=== PATIENT | female | born 1940 | race Caucasian/White ===

== ENCOUNTER 2019-08-30 20:38 | Inpatient (IN) | payer MEDICARE ==
[2019-08-30 21:35] LABS: Base Excess-Venous 7.1 mmol/L (-2.0 to 3.0); Bicarbonate (HCO3v) 33.3 mmol/L (22.0-28.0); CO2 Tension (PvCO2) 53.8 mmHg (40.0-50.0); Chloride 100 mmol/L (98-107); Potassium 3.5 mmol/L (3.5-5.1); Sodium 139 mmol/L (138-145)
[2019-08-30 21:43] LABS: #Basophils 0.1 thou/uL (0.0-0.2); #Eosinphils 0.2 thou/uL (0.0-0.7); #Lymphocytes 1.3 thou/uL (1.20-3.40); #Monocytes 0.6 thou/uL (0.11-0.59); #Neutrophils 8.6 thou/uL (1.40-6.50); %Basophils 0.5 % (0.0-1.0); %Eosinophils 1.9 % (0.0-10.0); %Lymphocytes 11.8 % (21.0-51.0); %Monocytes 5.6 % (0.0-10.0); %Neutrophils 80.2 % (42.0-75.0); Hemoglobin 12.8 g/dL (12.0-16.0); Mean Corpuscular HGB CONC 32.9 g/dL (32.0-36.0); Mean Corpuscular Hemoglobin 32.9 pg (27.0-31.0); Mean Corpuscular Volume 99.8 fL (78.0-98.0); Mean Platelet Volume 7.8 fL (7.4-10.4); Platelet Count 178 thou/uL (130-400); RBC Distribution Width 12.4 % (11.5-14.5); White Blood Cell (WBC) Count 10.8 thou/uL (4.8-10.8)
--- NOTE | 2019-08-30 21:51 | RAD ---
XR Hip Lt 2-3 View HISTORY: Fall yesterday. COMPARISON: None. FINDINGS: Positioning is very suboptimal there are findings that are suspicious for subcapital fractu re but positioning makes assessment very difficult. IMPRESSION: Probable subcapital fracture of the left femoral neck. CT would be suggested for better a ssessment.
[2019-08-30 21:52] LABS: Prothrombin Time 12.9 SEC (12.0-14.7)
[2019-08-30 21:53] LABS: PTT 31.3 SEC (22.9-36.1)
[2019-08-30 22:02] LABS: ALT (SGPT) 11 U/L (8-55); AST (SGOT) 15 U/L (5-34); Albumin 3.7 g/dL (3.4-4.8); Alkaline Phosphatase 84 U/L (40-110); Anion Gap 13 mmol/L (10-20); BUN (Urea Nitrogen) 14 mg/dL (9.8-20.1); Bilirubin, Total 0.5 mg/dL (0.2-1.2); Calc. Creatinine Clearance 0 mL/min (70-130); Calcium 9.2 mg/dL (7.8-10.44); Carbon Dioxide 32 mmol/L (23-31); Chloride 96 mmol/L (98-107); Digoxin 0.92 ng/mL (0.8-2.0); Estimated GFR-MDRD 58; Globulin 2.6 g/dL (2.4-3.5); Glucose 109 mg/dL (83-110); Potassium 3.7 mmol/L (3.5-5.1); Protein, Total 6.3 g/dL (6.0-8.3); Sodium 137 mmol/L (136-145)
--- NOTE | 2019-08-30 22:16 | CT ---
CT Brain WO Con HISTORY: Fall with head injury. COMPARISON: None. FINDINGS: The ventricular and cisternal system shows generalized atrophy. Encephalomalacia changes no [place] in the left frontal lobe. Chronic white matter changes are seen. No hemorrhage or mass effect. The mastoid air cells and visualized sinuses are clear. IMPRESSION: Left-sided frontal craniotomy and underlying encephalomalacia change. No acute findings.
--- NOTE | 2019-08-30 22:19 | CT ---
CT Cervical Spine WO Con HISTORY: Neck pain status post fall. COMPARISON: None. FINDINGS: The bones are demineralized. There is approximately 4 mm of anterolisthesis of C4 on C5. Th ere is marked disc narrowing at C5-6 and C6-7. There are prominent degenerative facet changes present. Moderate left foraminal narrowing at C3-4 with marked left foraminal narrowing at C4-5 and marked rig ht-sided foraminal narrowing at C5-6. There is also marked right-sided foraminal narrowing at C6-7. There is no CT evidence of fracture. IMPRESSION: No CT evidence of fracture the cervical spine.
--- NOTE | 2019-08-30 22:37 | RAD ---
XR Chest 1 View Portable HISTORY: Preop COMPARISON: None. FINDINGS: Heart size is slightly enlarged the patient is rotated. The lungs are clear of infiltrates. A right-sided Mediport catheter is present. The bones appear demineralized. IMPRESSION: No active intrathoracic disease.
--- NOTE | 2019-08-30 22:41 | CT ---
CT Pelvis WO Con HISTORY: Fall with hip pain COMPARISON: Plain film examination done earlier. FINDINGS: A partially visualized hypodensity involving the right kidney is most likely a cyst, it daniel sures 4.8 cm. There is a lower pole right renal calculus also seen measuring 8 to 9 mm. The bladder is mildly distended no free fluid seen within the pelvis. The bones are demineralized. Th ere is a subcapital fracture of the left femoral neck present. No additional fractures are seen. IMPRESSION: Subcapital left femoral neck fracture.
[2019-08-30] MEDS ORDERED: Nicotine 14 MG PATCH ONE (23:08)
[2019-08-30] MEDS ORDERED: Dextrose 50% Abboject 50 ML SYRINGE SLOW IVP PRN (23:16)
[2019-08-30] MEDS ORDERED: Ondansetron PF 4 MG/2 ML Vial IVP PRN (23:16)
[2019-08-30] MEDS ORDERED: Morphine 2 MG/ML SYRINGE SLOW IVP PRN (23:16)
[2019-08-30] MEDS ORDERED: Dextrose 5% in Water 1,000 ML IV PRN (23:16)
[2019-08-30] MEDS ORDERED: Ketorolac Tromethamine 30 MG/ML VIAL IVP PRN (23:24)
[2019-08-30] MEDS ORDERED: Lorazepam 0.5 MG TAB PO SCH (23:30)
[2019-08-30] MEDS ORDERED: traZODone HCl 50 MG TAB PO SCH (23:30)
[2019-08-30] MEDS ORDERED: Morphine 4 MG/ML VIAL ONE (23:55)
[2019-08-30] MEDS: traMADol HCl 50 MG TAB PO SCH (23:59)
--- NOTE | 2019-08-30 23:59 | PRG ---
DATE OF SERVICE: 08/30/2019 HISTORY OF PRESENT ILLNESS: Ms. Adams is an 79-year-old female, who came into the ER for evaluation of left hip pain after mechanical fall. The patient has been in hospice due to lung cancer with brain metastasis, COPD, emphysema, and atrial fibrillation. The patient reports she has been using a walker in the hospice facility and she tripped and fell, broke her left hip. She is unable to bear weight after that. Other than that, she did not hit her head or lose her consciousness. Upon arrival in the ED, the patient is stable, GCS 15, complains of left hip pain. PAST MEDICAL HISTORY: COPD, treated with albuterol 3 times a day. PAST SURGICAL HISTORY: noncontributory. ALLERGIES: NO KNOWN ALLERGIES. CURRENT MEDICATIONS: 1. Trazodone 100 once a day. 2. Morphine 20 mg four times a day. 3. Digoxin 125 mcg once a day. 4. Pantoprazole. 5. Albuterol. 6. Lorazepam. 7. Aspirin. PHYSICAL EXAMINATION: GENERAL: The patient is lying down in bed with no acute respiratory distress. GCS 15. Oriented x3. VITAL SIGNS: Respiratory rate 18, temperature 98, O2 saturation 97 on 2 L, heart rate 76, blood pressure 124/71. LUNGS: Clear bilaterally. HEART: Regular rate and rhythm. ABDOMEN: Soft, nondistended. EXTREMITIES: Neurovascularly intact x4. Left hip range of motion is limited due to pain. NEUROLOGY: No focal neurological deficits. ASSESSMENT: 1. Status post ground level fall. 2. Left hip fracture. 3. History of lung cancer, brain metastasis, hospice treatment. 4. Chronic obstructive pulmonary disease. PLAN: The patient will be admitted to trauma service for pain control and await for decision on treatment plan. Dr. Ward will talk to the family later and discuss on treatment plan, supportive care. The patient will be n.p.o. at midnight in case the patient to go to OR tomorrow. Resume home med [employer]. Job ID: [id number]
[2019-08-31] MEDS: Sodium Chloride 0.9% 1,000 ML IV SCH ×3 (01:15→19:12)
[2019-08-31] MEDS ORDERED: Sodium Chloride 0.9% 1,000 ML IV SCH (06:15)
[2019-08-31] MEDS: traMADol HCl 50 MG TAB PO SCH ×3 (06:16→21:12)
[2019-08-31] MEDS: Acetaminophen 1,000 MG in Premix Bag 1 BAG IVPB SCH ×3 (06:17→22:12)
[2019-08-31 06:33] LABS: #Eosinphils 0.2 thou/uL (0.0-0.7); #Lymphocytes 1.5 thou/uL (1.20-3.40); #Monocytes 0.7 thou/uL (0.11-0.59); #Neutrophils 7.2 thou/uL (1.40-6.50); %Basophils 0.3 % (0.0-1.0); %Eosinophils 2.3 % (0.0-10.0); %Lymphocytes 15.6 % (21.0-51.0); %Monocytes 7.5 % (0.0-10.0); %Neutrophils 74.2 % (42.0-75.0); Hemoglobin 11.6 g/dL (12.0-16.0); Mean Corpuscular HGB CONC 32.5 g/dL (32.0-36.0); Mean Corpuscular Hemoglobin 32.4 pg (27.0-31.0); Mean Corpuscular Volume 99.6 fL (78.0-98.0); Platelet Count 157 thou/uL (130-400); RBC Distribution Width 12.3 % (11.5-14.5); Red Blood Cell (RBC) Count 3.59 mill/uL (4.20-5.40); White Blood Cell (WBC) Count 9.7 thou/uL (4.8-10.8)
[2019-08-31] MEDS ORDERED: Albuterol Sulfate 2.5 mg/3 ml Neb NEB PRN (06:37)
[2019-08-31] MEDS ORDERED: Lorazepam 0.5 MG TAB PO PRN (06:37)
[2019-08-31 06:51] LABS: Anion Gap 12 mmol/L (10-20); BUN (Urea Nitrogen) 12 mg/dL (9.8-20.1); Calc. Creatinine Clearance 40 mL/min (70-130); Calcium 8.4 mg/dL (7.8-10.44); Carbon Dioxide 28 mmol/L (23-31); Chloride 103 mmol/L (98-107); Estimated GFR-MDRD 67; Glucose 107 mg/dL (83-110); Magnesium 1.9 mg/dL (1.6-2.6); Phosphorus 3.3 mg/dL (2.3-4.7); Potassium 3.6 mmol/L (3.5-5.1); Sodium 139 mmol/L (136-145)
[2019-08-31] MEDS ORDERED: CEFAZOLIN 2 GM in Premix Bag 1 BAG IVPB SCH (08:15)
[2019-08-31] MEDS: Famotidine/PF 20 mg/2ml Vial SLOW IVP SCH ×2 (08:34→21:13)
[2019-08-31] MEDS: traZODone HCl 50 MG TAB PO SCH (08:34)
[2019-08-31] MEDS: Polyethylene Glycol 3350 17 GM Packet PO SCH (08:35)
[2019-08-31] MEDS: Senokot S 8.6-50 MG TAB PO SCH ×2 (08:35→21:09)
[2019-08-31] MEDS ORDERED: Non-Formulary Item 1 EACH (Trazodone Hcl [Trazodone Hcl] 100 MG) PO SCH (09:00)
[2019-08-31] MEDS ORDERED: FLU VACC TS2019-20(65YR UP)/PF 180 MCG/0.5 ML SYRINGE IM ONE (09:00)
[2019-08-31] MEDS ORDERED: Digoxin 0.125 MG TAB PO SCH (09:00)
--- NOTE | 2019-08-31 09:37 | CON ---
DATE OF CONSULTATION: CHIEF COMPLAINT: Left hip pain. HISTORY OF PRESENT ILLNESS: Ms. Adams is an 79-year-old female, who fell yesterday. She lost her balance when she got up. She got somewhat lightheaded. She thinks her blood pressure dropped low. She fell on her left side. She suffered a left femoral neck fracture. The patient is on hospice for metastatic lung cancer. She does live at home, however, with her . She ambulates with a cane around her house. She uses a walker occasionally. She has pain in her hip currently. She has been admitted to the hospital for care of her hip fracture as well as medical issues. PAST MEDICAL HISTORY: COPD as well as history of lung cancer with metastatic lesions to the brain. The patient has a history of atrial fibrillation as well. She is currently only on aspirin. PAST SURGICAL HISTORY: Negative for recent surgeries. ALLERGIES: NO KNOWN DRUG ALLERGIES. SOCIAL HISTORY: The patient denies tobacco, alcohol, or drug use. IMAGES: X-rays of the left hip and pelvis demonstrated displaced femoral neck fracture. CT scan of the pelvis confirms displaced femoral neck fracture which is acute. PHYSICAL EXAMINATION: VITAL SIGNS: Temperature is 98.1, pulse is 98, respiratory rate is 18, oxygen saturations 96% on nasal cannula oxygen, blood pressure is 129/77. GENERAL: She is lying supine. She is alert. She answers questions appropriately. HEENT: Normocephalic and atraumatic. RESPIRATORY: The patient is on oxygen. Otherwise, she is breathing comfortably. EXTREMITIES: The patient's left leg is flexed and shortened. She has pain with any motion of the leg. SKIN: Intact. She is very thin. IMPRESSION: Femoral neck fracture in an elderly female with metastatic lung cancer. PLAN: At this point, we had a discussion with the patient. We will need to discuss with her and family if they would like us to proceed with surgical intervention. The goal of surgery would be allow her to have pain relief and to mobilize. Alternatively, we could treat her nonoperatively with pain control. She would likely need to go into a facility. She would need a period of nonweightbearing. We will keep her n.p.o. until her and her family decide which route they would like to take for treatment. She will have appropriate DVT prophylaxis, antibiotic prophylaxis, and pain control. Job ID: [id number]
[2019-08-31] MEDS ORDERED: EPINEPHrine 1 MG/10 ML Abboject SYRINGE ONE ×2 (12:48→16:42)
[2019-08-31] MEDS ORDERED: Calcium Chloride 1 GM/10 ML Abboject SYRINGE ONE (12:48)
[2019-08-31] MEDS ORDERED: ePHEDrine/0.9% NaCl/PF SYRINGE 50 mg/10 ml ONE (12:48)
[2019-08-31] MEDS ORDERED: PHENYLEPHRINE-NS 100 MCG/ML 10 ML SYRINGE ONE (12:48)
[2019-08-31 12:55] LABS: Bilirubin Negative (Negative); Blood, Urine Negative (Negative); Clarity Clear (Clear); Glucose, Urine (Dipstick) Normal (Negative); Leukocyte 25 Leu/uL (Negative); Nitrite Negative (Negative); Protein, Urine (Dipstick) Negative (Neg-Trace); RBC/HPF 0-3 HPF (0-3); Squamous Epithelial 0-3 HPF (0-3); Urobilinogen Normal mg/dL (Less than 2)
[2019-08-31 13:14] LABS: Bacteria/HPF None Seen HPF (None Seen)
[2019-08-31 13:15] LABS: Urine Culture Reflex Yes Yes
[2019-08-31] MEDS ORDERED: Ketamine 50 MG/ML (10ML VIAL) ONE (15:44)
[2019-08-31] MEDS ORDERED: Midazolam HCl 2 mg/2 ml Vial ONE (15:48)
[2019-08-31] MEDS ORDERED: Fentanyl 100 MCG/2 ML VIAL ONE (15:48)
[2019-08-31] MEDS ORDERED: Bupivacaine HCl 0.5%/Epinephrine 1:200,000/PF 30 ml Vial ONE (16:23)
[2019-08-31] MEDS ORDERED: EPINEPHrine 1 MG/ML AMP ONE (16:42)
[2019-08-31] MEDS ORDERED: Sodium Bicarb 50 MEQ/50 ML VIAL ONE (16:51)
[2019-08-31] MEDS ORDERED: Sodium Bicarb 50 MEQ/50 ML Abboject 8.4% SYRINGE ONE (17:00)
[2019-08-31 18:05] LABS: Actual Bicarbonate (HCO3a) 26.5 mEq/L (22-28); Base Excess (BEa) 1.5 mEq/L (-2.0 to +3.0); CO2 Tension 43.5 mmHg (35.0-45.0); Calcium, Ionized 1.26 mmol/L (1.12-1.30); Carboxyhemoglobin (COHb) 1.1 gm% (0.0-3.0); Hemoglobin (Hb) 8.7 g/dL (12.0-16.0); O2 Tension (PaO2) 118.2 mmHg (> 60.0); Potassium - ABG Lab 2.78 mmol/L (3.70-5.30)
[2019-08-31 18:09] LABS: ALV-art Gradient 540.425 (0-20); Puncture Site ALINE
[2019-08-31] MEDS ORDERED: Norepinephrine 8 MG in Dextrose 5% in Water 242 ML IVPB PRN (18:22)
[2019-08-31] MEDS ORDERED: Digoxin 0.5 MG/2 ML AMP SLOW IVP SCH (19:00)
[2019-08-31] MEDS ORDERED: Ventilator Sedation Protocol 1 EACH FS SCH (19:07)
[2019-08-31] MEDS ORDERED: Lorazepam 2 MG/ML VIAL SLOW IVP PRN (19:11)
[2019-08-31] MEDS ORDERED: Morphine 2 MG/ML SYRINGE SLOW IVP PRN (19:11)
[2019-08-31] MEDS ORDERED: Propofol 1,000 MG/100 ML VIAL IV PRN (19:11)
[2019-08-31] MEDS ORDERED: DISCONTINUE PREVIOUS NARCOTIC PAIN MEDICATIONS AND BENZODIAZEPINES FS SCH (19:11)
[2019-08-31] MEDS ORDERED: Propofol BOLUS 1,000 MG/100 ML VIAL IV PRN (19:11)
[2019-08-31] MEDS ORDERED: fentaNYL Citrate/PF 2,000 MCG in Sodium Chloride 0.9% 60 ML IV SCH (19:11)
[2019-08-31] MEDS ORDERED: Fentanyl BOLUS 250 ML IVPB PRN (19:11)
[2019-08-31] MEDS ORDERED: Arformoterol 15 MCG/2 ML NEB NEB SCH (19:15)
[2019-08-31] MEDS ORDERED: Budesonide 0.5 MG/2 ML NEB INH SCH (19:15)
--- NOTE | 2019-08-31 19:30 | RAD ---
PELVIS ONE VIEW: HISTORY: Hemiarthroplasty. COMPARISON: Hip radiograph same day. FINDINGS: Satisfactory postoperative appearance of left hip hemiarthroplasty. Expected postoperative gas and ed abhijit. IMPRESSION: Satisfactory postoperative appearance. POS: HOME
--- NOTE | 2019-08-31 19:30 | RAD ---
LEFT HIP ONE VIEW: HISTORY: Hip arthroplasty. COMPARISON: None. FINDINGS: Satisfactory postoperative appearance. POS: HOME
--- NOTE | 2019-08-31 19:32 | RAD ---
CHEST ONE VIEW: HISTORY: Intubated patient. COMPARISON: Radiograph from the prior day. FINDINGS: Port catheter tip projects over the inferior SVC. Endotracheal tube tip in good position. No pneumothorax. Lungs are mildly hyperinflated. IMPRESSION: Similar examination of the chest aside from new endotracheal tube tip at the level of the clavicles. POS: HOME
[2019-08-31 20:33] LABS: Hemoglobin 9.6 g/dL (12.0-16.0); Mean Corpuscular HGB CONC 32.1 g/dL (32.0-36.0); Mean Corpuscular Volume 99.7 fL (78.0-98.0); Mean Platelet Volume 8.2 fL (7.4-10.4); Platelet Count 161 thou/uL (130-400); RBC Distribution Width 12.3 % (11.5-14.5); White Blood Cell (WBC) Count 17.7 thou/uL (4.8-10.8)
[2019-08-31 20:48] LABS: Band 12 % (5-11); Lymphocytes 4 % (21-51); MDiff Complete? YES; Monocytes 3 % (0-10); Neutrophil 78 % (42-75); Platelet Morphology Comment Appears Adequate
[2019-08-31 20:50] LABS: ALT (SGPT) 20 U/L (8-55); AST (SGOT) 34 U/L (5-34); Albumin 2.5 g/dL (3.4-4.8); Alkaline Phosphatase 62 U/L (40-110); Anion Gap 17 mmol/L (10-20); BUN (Urea Nitrogen) 10 mg/dL (9.8-20.1); Bilirubin, Total 0.5 mg/dL (0.2-1.2); Calc. Creatinine Clearance 44 mL/min (70-130); Calcium 8.7 mg/dL (7.8-10.44); Carbon Dioxide 23 mmol/L (23-31); Chloride 107 mmol/L (98-107); Estimated GFR-MDRD 74; Globulin 2.1 g/dL (2.4-3.5); Glucose 186 mg/dL (83-110); Magnesium 1.6 mg/dL (1.6-2.6); Phosphorus 4.3 mg/dL (2.3-4.7); Protein, Total 4.6 g/dL (6.0-8.3); Sodium 143 mmol/L (136-145)
[2019-08-31 21:01] LABS: Actual Bicarbonate (HCO3a) 24.9 mEq/L (22-28); Base Excess (BEa) -0.7 mEq/L (-2.0 to +3.0); CO2 Tension 44.7 mmHg (35.0-45.0); Carboxyhemoglobin (COHb) 0.7 gm% (0.0-3.0); Hemoglobin (Hb) 10.3 g/dL (12.0-16.0); O2 Tension (PaO2) 98.1 mmHg (> 60.0); pH, Arterial 7.36 (7.35-7.45)
[2019-08-31 21:02] LABS: ALV-art Gradient 202.525 (0-20); Puncture Site LINE
[2019-08-31] MEDS ORDERED: Dextrose 50% Abboject 50 ML SYRINGE SLOW IVP PRN (21:13)
[2019-08-31] MEDS ORDERED: Dextrose 5% in Water 1,000 ML IV PRN (21:13)
[2019-08-31] MEDS ORDERED: HumaLOG 300 UNITS/3 ML VIAL SC PRN (21:13)
[2019-08-31] MEDS: methylPREDNISolone Sod Succ 40 MG VIAL IVP SCH (21:13)
--- NOTE | 2019-08-31 21:43 | PRG ---
DATE OF SERVICE: 08/31/2019 TIME OF SERVICE: Patient seen at approximately 1945 hours. SUBJECTIVE: Ms. Adams is an 79-year-old female fell causing a left hip fracture, known metastatic lung cancer and COPD, who went for ORIF for palliation today after consent by family. The surgery went well. Minimal blood loss. However, she does have a spinal anesthesia. Near the end of the case, the patient became bradycardic and hypotensive. She was pre-treated with 2 L of fluid per Anesthesia. During this episode, the patient was given a total of 2 mg of epi by push dose pressor and 3 amps of bicarb, 1 g of calcium. Blood pressure responded. She had a right femoral triple-lumen catheter as well as a right femoral art-line placed for invasive monitoring. She remained hypotensive. She was intubated for respiratory failure with a 7.5 ET tube and brought to the ICU for further resuscitation and management. I evaluated the patient in the ICU. She is currently on Levophed at 5 mcg/min. She is on SIMV, rate of 14, pressure support 10, volume 450, FiO2 0.5 with a PEEP of 5. She is getting a minute ventilation of 9 L, has a peak pressure of 15, difficult to get a sat, her MAP is in the 50s on my arrival. Heart rate is atrial fibrillation, RVR. She has been given digoxin 0.25 mg now. She has ordered 1 PRBC as she does have conjunctival pallor. The patient does have a known history of atrial fibrillation. She is not on any sedation at this time. She is awake and following command. She will open her eyes. She has some urine output, a total of 200 since coming back from the OR, however, that was nearly 2 hours ago. She has had low urine output throughout the day. Her blood gas was reviewed. Family is at the bedside. They have elected for the patient to be DNR. She was on hospice. They do not want aggressive care. They are signing for this and I will change the order in the system. The patient is on normal saline at 100 per hour. In review, she did have trace leukouria. I talked to the family. She was not ill, was not sick, had no fever, no complaints prior to she was on hospice but treated at home since she got up and landed face first when she got out of bed. She had taken sleeping pills prior to this, and she has kyphosis which has caused unsteady gait in the past. Off coumadin x 3 weeks for brain surgery. REVIEW OF SYSTEMS: Deferred secondary to patient's sedation and mechanical ventilation. PHYSICAL EXAMINATION: VITAL SIGNS: Blood pressure, MAP of 57, heart rate is 140 and variable, respiratory rate is 16, on mechanical ventilator, unable to appreciate an oxygen saturation. Her pO2 on most recent blood gas was 118 on FiO2 of 1.0, leading to a high A-a gradient. GENERAL: An 79-year-old female, on mechanical ventilator, in bed, pale, chronically ill appearing. HEENT: Normocephalic and atraumatic. Trachea is midline. No JVD is appreciated. She has 7.5 ET tube without air leak. RESPIRATORY: Mild crackles and congestion noted, but normal rate. Moves air in all lung howell. Trace expiratory wheezes. CARDIOVASCULAR: Irregularly irregular, tachycardic rhythm. No rober murmur. She has no edema. Warm extremities. ABDOMEN: Soft and nontender. PELVIS: Maaz catheter in place with scant urine. She has a right femoral art-line, right fem triple-lumen catheter. MUSCULOSKELETAL: She has ORIF of the left hip, warm extremities. Skin is pale, dry, cool. NEUROLOGIC: She is awake and following commands minimally, but does fall asleep easily, is in no acute distress. DIAGNOSTIC DATA: ABG at 1800 hours: pH of 7.40, pCO2 is 43.5, pO2 is 118, bicarb is 33.3. Chest x-ray shows ET tube above the heike. She does have a right port that is not accessed. No pneumothorax. Large lung howell. COPD pattern is appreciated. ASSESSMENT: 1. Left hip fracture, status post open reduction internal fixation. 2. Acute respiratory failure requiring mechanical ventilation. 3. Atrial fibrillation with rapid ventricular response. 4. Postprocedural hypotension. 5. General volume depletion on arrival to the hospital. 6. Chronic obstructive pulmonary disease with no acute exacerbation. 7. History of metastatic lung cancer, coronary artery disease, chronic obstructive pulmonary disease. PLAN: 1. Continue mechanical ventilator tonight. 2. Levophed to maintain mean arterial pressure greater than 65%. 3. Continue normal saline at 100 per hour. 4. We will get a rectal temp and maintain patient is cool. 5. Check CBC, CMP, mag, phosphate levels now. 6. Transfuse one PRBC now. 7. Digoxin is being given now. 8. If remains atrial fibrillation RVR after blood transfusion and digoxin, will be placed on amiodarone infusion after bolus of amiodarone. 9. Continue aggressive pulmonary toilet with DuoNeb and Brovana. 10. FiO2 to maintain SpO2 greater than 92%. 11. Given that the ABG was on FiO2 of 1.0, unable to get SpO2 now and she had a high A-a gradient with an FiO2 of 0.5%. We will repeat ABG now and follow up on the same. We must consider PE given cancer and acute onset, however most likely this is related to medication reaction in a chronically ill patient. 12. Repeat chest x-ray in the morning. 13. I have confirmed with the patient's family that her wishes are DNR. I am changing this in the system now. 14. UA did have trace amount of white, no bacteria, but given her acute respiratory failure and unknown etiology of this fall, I am going to cover her with cefazolin for the time being as urine culture has been ordered. 15. We will continue all other supportive care at this time. 16. Diet will be n.p.o. 17. Peripheral IV, 7.5 ET tube, Maza catheter, right femoral art-line, right femoral triple-lumen. 18. Prophylaxis will be Pepcid and SCDs. 19. DNR. 20. Disposition is ICU for tonight. 21. I have updated the patient's family at the bedside, I have answered all questions. I have seen and coordinated with the Anesthesia staff and Orthopedic staff. Appreciate their assistance and resuscitation prior to ICU arrival. I have coordinated with the bedside RN, both day and master glazier, and this plan can be updated as needed. Job ID: [id number] [facility]
[2019-08-31] MEDS: CEFAZOLIN 2 GM in Premix Bag 1 BAG IVPB SCH (22:12)
--- NOTE | 2019-09-01 01:18 | OP ---
DATE OF PROCEDURE: 08/31/2019 OPERATION: Left hip hemiarthroplasty. PREOPERATIVE DIAGNOSIS: Left femoral neck fracture. POSTOPERATIVE DIAGNOSIS: Left femoral neck fracture. COMPLICATIONS: None. ESTIMATED BLOOD LOSS: 150 mL. ROTOR PLATE WASHER: Gus Oropeza PA-C. IMPLANTS: DePuy Basic Press-Fit stem size 5, size 28 femoral head with +8.5 length, 45 mm bipolar shell. INDICATIONS: Ms. Adams is an 79-year-old female who has fallen and fractured the left femoral neck. She has been indicated for hemiarthroplasty of the hip to restore the ability to mobilize and prevent complications of prolonged bedrest. The patient is at high risk of complication given her poor health. She has metastatic cancer as well as other medical problems. She is at risk for wound complication, nerve or vascular injury, DVT, PE, cardiopulmonary compromise, stroke, PA, or even . DESCRIPTION OF PROCEDURE: Ms. Adams was identified in the preoperative holding area. Her correct extremity was marked. She was carried to the operating room. She was positioned supine. She was turned on her side and a spinal anesthetic was placed. At this point, she was placed with her left side up and we prepped and draped the left lower extremity. We began the procedure by dissecting down through the subcutaneous tissue to the fascia. Fascia was opened. At this point, we exposed the underlying short external rotators of the hip. These were subperiosteally divided from the proximal femur. We performed a capsulotomy. We removed the femoral head and made a new osteotomy of the femoral neck. At this point, we cleared the acetabulum of bony fragments. We then proceeded to prepare the femoral canal. We reamed followed by broaching up to a size 5. We trialed off this broach. A +8.5 was appropriate for length. The hip was stable with our trial components. The trial components were removed. We placed our final hip components. We thoroughly irrigated with copious lavage. We then closed the deep tissues with #5 Ethibond suture followed by #2 Vicryl suture, 2-0 Vicryl and zuhair for the skin. A sterile dressing was applied. Towards the end of the procedure, the patient became hypotensive. We quickly finished the procedure and the patient was placed supine. She was intubated by the Anesthesia team. She required pressor support. She was taken once stabilized and appropriate lines were placed to the CCU for further care. Job ID: [id number]
[2019-09-01] MEDS: methylPREDNISolone Sod Succ 40 MG VIAL IVP SCH ×4 (01:38→20:28)
--- NOTE | 2019-09-01 02:52 | CON ---
DATE OF CONSULTATION: CONSULTING PHYSICIAN: Ion Ward MD REASON FOR CONSULTATION: Postoperative ventilator management. This encompassed 45 minutes critical care time. HISTORY OF PRESENT ILLNESS: Ms. Adams is an 79-year-old female, who was admitted to the hospital on 08/30/2019 by the Trauma Service after a fall at home and fracturing her left hip. Today, she underwent an open reduction and internal fixation of that hip. I was told she had a spinal anesthetic for the case. Postoperatively, she had problems with hypotension. She was left intubated after the case and is now on mechanical ventilation. PAST MEDICAL HISTORY: 1. Lung cancer with metastasis to the brain. Previous workup has been in [place] and she received radiation therapy to the brain in [place]. This patient has been on hospice care up until this hospitalization. 2. COPD/emphysema. 3. Atrial fibrillation. 4. Cataracts. 5. Hypertension. 6. Coronary artery disease. PAST SURGICAL HISTORY: 1. MediPort placement. 2. Cataract surgery. 3. Coronary stent placement. 4. Some type of brain surgery with resection of the tumor. ALLERGIES: NONE. MEDICATIONS: Prior to admission, 1. Trazodone 100 mg daily. 2. Morphine 20 mg 4 times daily. 3. Digoxin 125 mcg daily. 4. Pantoprazole 40 mg daily. 5. Albuterol p.r.n. 6. Lorazepam unknown dose. 7. Aspirin unknown dose. FAMILY MEDICAL HISTORY: Noncontributory. SOCIAL HISTORY: She has been 1 pack per day smoker for 65 years. She is continuing to smoke. She does not consume alcohol, does not use illicit drugs. She is ambulatory at home with the assistance of a cane. She does not drive anymore. REVIEW OF SYSTEMS: Cannot be obtained as the patient is on mechanical ventilation. PHYSICAL EXAMINATION: VITAL SIGNS: Heart rate 121, blood pressure 97/47, O2 saturation 100%, respiratory rate 14. GENERAL: The patient is awake. She is able to follow commands, but she is intubated. HEENT: Pupils reactive, sclerae icteric. Oropharynx clear. ET tube is 21 cm at the lip. NECK: No adenopathy or JVD. LUNGS: Coarse breath sounds bilaterally. CARDIOVASCULAR: S1, S2 tachycardic and irregularly irregular. ABDOMEN: Soft, nontender, and nondistended. EXTREMITIES: No clubbing, cyanosis, or edema. She has a central line, arterial line in the right groin area. LABORATORY DATA: White blood count 9.7, hematocrit 35.8, and platelet count 157. A pH of 7.40, pCO2 of 43, pO2 118 on SIMV rate 14, tidal volume 450, PEEP 5, pressure support 10, FiO2 100%. Sodium 139, potassium 3.6, chloride 103, CO2 of 28, BUN 12, creatinine 0.8, glucose 107. Troponin 0.018. A postoperative chest x-ray is pending. Preoperative x-ray shows large hyperinflated lungs with a very tortuous aortic silhouette. A right-sided MediPort was appreciated. Brain CT demonstrated left-sided frontal craniotomy abnormality with underlying encephalomalacia. Hip x-ray demonstrated subcapital fracture of the left femoral neck. ASSESSMENT: 1. Status post operative repair of left femoral neck surgery. 2. Postoperative respiratory failure, requiring mechanical ventilation. 3. Underlying chronic obstructive pulmonary disease. 4. Underlying lung cancer, previously on hospice. 5. Postoperative hypotension. 6. Atrial fibrillation with rapid ventricular response. PLAN: 1. We will go ahead and switch her over to IV digoxin. 2. Nebulization therapy and steroids for the COPD. 3. Try to use digoxin for rate control atrial fibrillation. 4. Wean vasopressors as tolerated. 5. IV fluids. 6. Begin DVT prophylaxis with enoxaparin tomorrow if okay with the Trauma Service. 7. Add famotidine for GI prophylaxis. Job ID: [id number]
[2019-09-01] MEDS ORDERED: Albumin 25% 25 GM/100 ML BOT IVPB SCH (03:50)
[2019-09-01 04:47] LABS: #Lymphocytes 0.3 thou/uL (1.20-3.40); #Monocytes 0.4 thou/uL (0.11-0.59); #Neutrophils 12.6 thou/uL (1.40-6.50); %Eosinophils 0.3 % (0.0-10.0); %Lymphocytes 2.2 % (21.0-51.0); %Neutrophils 94.5 % (42.0-75.0); Hemoglobin 11.6 g/dL (12.0-16.0); Mean Corpuscular HGB CONC 33.3 g/dL (32.0-36.0); Mean Corpuscular Hemoglobin 32.1 pg (27.0-31.0); Mean Corpuscular Volume 96.5 fL (78.0-98.0); Mean Platelet Volume 8.9 fL (7.4-10.4); Platelet Count 143 thou/uL (130-400); RBC Distribution Width 13.9 % (11.5-14.5); Red Blood Cell (RBC) Count 3.62 mill/uL (4.20-5.40); White Blood Cell (WBC) Count 13.4 thou/uL (4.8-10.8)
[2019-09-01] MEDS: Sodium Chloride 0.9% 1,000 ML IV SCH ×3 (04:54→23:39)
[2019-09-01 04:58] LABS: Anion Gap 18 mmol/L (10-20); BUN (Urea Nitrogen) 11 mg/dL (9.8-20.1); Calc. Creatinine Clearance 38 mL/min (70-130); Calcium 8.5 mg/dL (7.8-10.44); Carbon Dioxide 23 mmol/L (23-31); Chloride 106 mmol/L (98-107); Estimated GFR-MDRD 63; Glucose 159 mg/dL (83-110); Potassium 3.7 mmol/L (3.5-5.1); Sodium 143 mmol/L (136-145)
[2019-09-01] MEDS: CEFAZOLIN 2 GM in Premix Bag 1 BAG IVPB SCH ×3 (05:18→21:27)
[2019-09-01] MEDS: Budesonide 0.5 MG/2 ML NEB INH SCH ×2 (07:20→19:09)
[2019-09-01] MEDS: Arformoterol 15 MCG/2 ML NEB NEB SCH ×2 (07:20→19:09)
[2019-09-01 07:26] LABS: Actual Bicarbonate (HCO3a) 23.7 mEq/L (22-28); Base Excess (BEa) -1.9 mEq/L (-2.0 to +3.0); CO2 Tension 43.7 mmHg (35.0-45.0); Calcium, Ionized 1.15 mmol/L (1.12-1.30); Carboxyhemoglobin (COHb) 0.7 gm% (0.0-3.0); Hemoglobin (Hb) 10.5 g/dL (12.0-16.0); O2 Tension (PaO2) 82.4 mmHg (> 60.0); Potassium - ABG Lab 3.39 mmol/L (3.70-5.30); pH, Arterial 7.35 (7.35-7.45)
[2019-09-01 07:52] LABS: ALV-art Gradient 219.475 (0-20); Puncture Site LINE
--- NOTE | 2019-09-01 07:57 | PRG ---
DATE OF SERVICE: 09/01/2019 SUBJECTIVE: She is awake, off sedation, appears to be doing well. OBJECTIVE: VITAL SIGNS: On exam, temperature is 97.9, pulse 120, blood pressure 121/65. Intake for 24 hours 1654, output 460. HEENT: Unremarkable. NECK: No adenopathy or JVD. LUNGS: Clear anteriorly bilaterally. CARDIOVASCULAR: S1 and S2 irregularly irregular and tachycardic. ABDOMEN: Soft and nontender. EXTREMITIES: No edema. LABORATORY DATA: ABG; pH of 7.35, pCO2 of 43, pO2 of 82. White blood cell count 13.4, hematocrit 34.9, and platelet count 143. Sodium 143, potassium 3.7, chloride 106, CO2 of 23, BUN 11, creatinine 0.8, and glucose 159. ASSESSMENT: 1. Status post hip fracture. 2. Acute respiratory failure, requiring mechanical ventilation. 3. Underlying chronic obstructive pulmonary disease. 4. Metastatic lung cancer. 5. Atrial fibrillation with rapid ventricular response probably aggravated somewhat by the Levophed. PLAN: 1. We will go ahead and extubate and observe. 2. Continue nebulization therapy and steroids. 3. Continue digoxin for rate control. 4. May require Cardiology involvement for opinion as best age to control atrial fibrillation. Job ID: [id number]
[2019-09-01] MEDS: traZODone HCl 50 MG TAB PO SCH (08:35)
[2019-09-01] MEDS: Polyethylene Glycol 3350 17 GM Packet PO SCH ×2 (08:36→08:45)
[2019-09-01] MEDS: Senokot S 8.6-50 MG TAB PO SCH ×3 (08:36→20:28)
[2019-09-01] MEDS: Digoxin 0.5 MG/2 ML AMP SLOW IVP SCH (08:36)
[2019-09-01] MEDS ORDERED: Fentanyl 100 MCG/2 ML VIAL SLOW IVP PRN ×2 (08:55)
[2019-09-01] MEDS ORDERED: HYDROcodone/Acetaminophen 10/325 mg Tablet PO PRN (08:55)
--- NOTE | 2019-09-01 09:16 | RAD ---
PORTABLE CHEST ONE VIEW: 09/01/2019 4:36 a.m. HISTORY: Respiratory failure. Pneumonia. FINDINGS: No significant interval change is seen since the previous day's exam. POS: OFF
[2019-09-01 09:29] LABS: Actual Bicarbonate (HCO3a) 25.5 mEq/L (22-28); Analyzer IN Cardio OR; Base Excess (BEa) -6.7 mEq/L (-2.0 to +3.0); Calcium, Ionized 1.59 mmol/L (1.12-1.30); Carboxyhemoglobin (COHb) 0.3 gm% (0.0-3.0); Hemoglobin (Hb) 10.2 g/dL (12.0-16.0); O2 Tension (PaO2) 61.9 mmHg (> 60.0); Potassium - ABG Lab 3.81 mmol/L (3.70-5.30)
[2019-09-01 09:30] LABS: CO2 Tension 102.1 mmHg (35.0-45.0); pH, Arterial 7.02 (7.35-7.45)
[2019-09-01 09:31] LABS: Puncture Site ALINE
--- NOTE | 2019-09-01 11:05 | PRG ---
DATE OF SERVICE: 09/01/2019 SUBJECTIVE: Ms. Adams is extubated this morning. She is hiccuping, complaining of nausea. She is awake and alert, however. PLAN: Today, we will place NG tube now. Given her large gas bubble on her KUB that likely can be removed later on and unless she has signs of aspiration, we will start her on at least sips of clear liquids and her home medications. Please see the Swapnil Ahmadi's note for full details. Job ID: [id number]
--- NOTE | 2019-09-01 13:05 | PRG ---
DATE OF SERVICE: 09/01/2019 The patient was seen with Dr. Finnegan. SUBJECTIVE: This is an 79-year-old female with metastatic lung cancer on hospice whom had what was appeared to be a mechanical fall, sustaining a left hip fracture. In the OR yesterday, had a clinical decline with hypertension, bradycardia, and respiratory failure. She was intubated, placed in the ICU overnight. She is on pressors, currently she is now extubated by Pulmonary, I appreciate their assistance. She is still on Levophed at 5 mcg/kg/minute and this is being weaned. Her urine output has improved. Her mental status is acceptable as her pain seems to be controlled. She does have what is noted to be a large gastric bubble on chest x-ray, this morning we have asked for an NG tube to be placed to decompress this. Heart rate is better after digoxin, she is in the low one 100s now. Palliative Care has been consulted. The patient's family has elected for DNR at this point. PHYSICAL EXAMINATION: VITAL SIGNS: Blood pressure is 113/52, temperature is 97.3, heart rate is 106, O2 saturation is 94% on 3 L nasal cannula. She is breathing 18 times per minute. GENERAL: This is an 79-year-old female, chronically ill, sitting up in bed on oxygen, in slight respiratory distress. HEENT: Normocephalic, atraumatic. Trachea is midline. RESPIRATORY: She does have trace expiratory wheezes noted. She moves air in all lobes. Mild rhonchi noted in the upper. CARDIOVASCULAR: Irregularly irregular, tachycardic rhythm. No murmurs. No edema. ABDOMEN: Soft, nontender. PELVIS: With the Maza stable. MUSCULOSKELETAL: She has ORIF of the left hip. No edema. Strong pulses. Warm extremities. PSYCH: Normal mood and affect. NEUROLOGIC: Alert and oriented. LABORATORY DATA: From today; white blood cell count of 13.4, platelets are 143, hemoglobin and hematocrit are 11.6 and 34.9 respectively. Sodium is 143, potassium is 3.7, creatinine is 0.87, BUN is 11, CO2 is 23, glucose is 159, calcium is 8.5. Blood gas this morning showed a pH is 7.35, pCO2 is 43, PO2 is 82.4, on FiO2 0.5. Urine yesterday showed a little bit of whites, some hyaline casts. Chest x-ray this morning showed ET tube in good position. No infiltrate. COPD pattern. ASSESSMENT: 1. Left hip fracture status post open reduction and internal fixation. 2. Acute respiratory failure requiring mechanical ventilation, status post extubation on 09/01/2019. 3. Atrial fibrillation with rapid ventricular response, improving. 4. Postprocedure hypotension, still on Levophed, but improving. 5. Volume depletion has improved. 6. Chronic obstructive pulmonary disease with mild exacerbation on her home 3 L/minute nasal cannula. 7. History of metastatic lung disease, coronary artery disease, chronic obstructive pulmonary disease. 8. Gastric insufflation. PLAN: 1. Wean Levophed if possible. Maintain mean arterial pressure greater than 65. 2. Continue Ancef, waiting on urine cultures. 3. Heart line is being removed. 4. Continue digoxin per Critical Care Medicine. May need to involve Cardiology if not improving. 5. Continue aggressive pulmonary toilet. 6. Oxygen to maintain SpO2 you greater than 90%. We can stop IV fluids once patient is taking oral, she has passed her swallow study. Place NG tube to decompress the stomach, this can be removed in a few hours. 7. We will access the right chest port with a Hyman needle and remove the femoral central venous line. 8. If the patient is able to get off the Levophed with hope to get her off out of the ICU today. 9. Palliative Care has been consulted. 10. Diet will be a regular diet after her gastric bubble is decompressed and reduce risk of aspiration. 11. Activity is going to be PT/OT evaluation. 12. DNR. 13. Prophylaxis will be Pepcid and SCDs. We will add Lovenox back if the patient remained stable. 14. Disposition is ICU for now while on Levophed. 15. I have updated the patient, the patient patient's family at the bedside. I have answered all questions. Coordinate care with orthopedic team. Job ID: [id number]
--- NOTE | 2019-09-01 13:27 | PDOC.PALCO ---
Palliative Care Consult - Consult Details Requesting Physician: Dr Leone Reason for Consult: goals of care, complex decision-making Family Members Present: [place] - Pertinent HPI Prior to admission patient had been at home on hospice care for cancer of the lung with metastasis to the brain. Sunday at home patient had a fall, portable x-ray at home for left hip pain confirmed left hip fracture. Patient hospice was revoked and she was taken via ambulance to [facility]. Successful reduction of hip. 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 States she "is worn out". Cough, with "gas" from her surgery. Denies pain at this time. - Objective Vital Signs: Vital Signs - Most Recent Temp Pulse Resp BP Pulse Ox 97.3 F L 106 H 18 119/67 94 L 09/01/19 07:00 09/01/19 11:11 09/01/19 11:11 09/01/19 07:28 09/01/19 11:11 Palliative Performance Scale: 30 - Physical Exam Constitutional: NAD, confusion HEENT: moist MMs, EOMI Deviation from normal: Poor dentition Deviation from normal: wet cough, adventicious lung sounds, diminished to right Cardiovascular: irregular Gastrointestinal: soft, positive bowel sounds Psychiatric: normal affect - Problem List (1) Palliative care encounter Code(s): Z51.5 - ENCOUNTER FOR PALLIATIVE CARE Current Visit: Yes Status: Acute (2) Malignant neoplasm of lung Code(s): C34.90 - MALIGNANT NEOPLASM OF UNSP PART OF UNSP BRONCHUS OR LUNG Current Visit: Yes Status: Acute (3) Metastasis to brain Code(s): C79.31 - SECONDARY MALIGNANT NEOPLASM OF BRAIN Current Visit: Yes Status: Acute - Plan/Recommendations Plan: Initial visit with patient and her . They had been on [facility] prior to admission. Will be transfered to a room shortly out of CCU. Confirmed DNAR status with . They hope to transition back to [facility] at discharge. Palliative Care to continue to follow to clarify goals of care for patient. [40] minutes spent on this encounter with >50% of the time in counseling and coordination of care. Thank you for this very appropriate consult.
[2019-09-01] MEDS: Acetaminophen 1,000 MG in Premix Bag 1 BAG IVPB PRN (20:29)
[2019-09-01] MEDS ORDERED: Famotidine/PF 20 mg/2ml Vial SLOW IVP SCH (21:00)
[2019-09-01] MEDS ORDERED: Sodium Chloride 0.9% 500 ML IV SCH (23:45)
[2019-09-02] MEDS: methylPREDNISolone Sod Succ 40 MG VIAL IVP SCH ×4 (02:35→20:34)
--- NOTE | 2019-09-02 02:44 | PRG ---
DATE OF SERVICE: 09/01/2019 SUBJECTIVE: Ms. Adams is an 79-year-old female, who is status post ground level fall. She sustained a left hip fracture. She underwent ORIF of left hip fracture. Patient had sustained acute respiratory distress while in the ER and she extubation earlier today. She tolerated the extubation well. Currently, patient lying down in bed comfortable with no acute distress. Vital signs are stable. Urine output is in the marginal of 30 to 35 mL an hour. Her pain is well controlled. She tolerated her diet. Plan will be due to low urine output, she will have 500 normal saline bolus. Continue normal saline at 100 an hour. We will check her labs tomorrow. Job ID: [id number]
[2019-09-02 05:53] LABS: Anion Gap 14 mmol/L (10-20); BUN (Urea Nitrogen) 15 mg/dL (9.8-20.1); Calc. Creatinine Clearance 39 mL/min (70-130); Calcium 8.2 mg/dL (7.8-10.44); Carbon Dioxide 24 mmol/L (23-31); Chloride 109 mmol/L (98-107); Estimated GFR-MDRD 65; Glucose 137 mg/dL (83-110); Potassium 3.4 mmol/L (3.5-5.1); Sodium 144 mmol/L (136-145)
[2019-09-02 05:55] LABS: #Basophils 0.1 thou/uL (0.0-0.2); #Lymphocytes 0.5 thou/uL (1.20-3.40); #Monocytes 0.5 thou/uL (0.11-0.59); #Neutrophils 8.6 thou/uL (1.40-6.50); %Basophils 0.5 % (0.0-1.0); %Eosinophils 0.1 % (0.0-10.0); %Lymphocytes 4.9 % (21.0-51.0); %Monocytes 4.7 % (0.0-10.0); %Neutrophils 89.8 % (42.0-75.0); Hemoglobin 9.6 g/dL (12.0-16.0); Mean Corpuscular HGB CONC 33.8 g/dL (32.0-36.0); Mean Corpuscular Hemoglobin 32.3 pg (27.0-31.0); Mean Corpuscular Volume 95.5 fL (78.0-98.0); Mean Platelet Volume 8.8 fL (7.4-10.4); Platelet Count 90 thou/uL (130-400); Platelet Morphology Comment Appears Decreased; RBC Distribution Width 13.9 % (11.5-14.5); Red Blood Cell (RBC) Count 2.98 mill/uL (4.20-5.40); White Blood Cell (WBC) Count 9.6 thou/uL (4.8-10.8)
[2019-09-02] MEDS: CEFAZOLIN 2 GM in Premix Bag 1 BAG IVPB SCH (06:20)
[2019-09-02] MEDS: Arformoterol 15 MCG/2 ML NEB NEB SCH ×2 (07:16→19:08)
[2019-09-02] MEDS: Budesonide 0.5 MG/2 ML NEB INH SCH ×2 (07:19→19:08)
[2019-09-02] MEDS: Acetaminophen 1,000 MG in Premix Bag 1 BAG IVPB PRN (08:04)
[2019-09-02] MEDS: Digoxin 0.5 MG/2 ML AMP SLOW IVP SCH (08:27)
[2019-09-02] MEDS: Senokot S 8.6-50 MG TAB PO SCH ×2 (08:31→20:34)
[2019-09-02] MEDS: Polyethylene Glycol 3350 17 GM Packet PO SCH (08:31)
--- NOTE | 2019-09-02 08:45 | RAD ---
PORTABLE CHEST: HISTORY: Respiratory distress. COMPARISON: Prior day's study. FINDINGS: Heart size appears enlarged. Pleural and parenchymal changes in the right base are unchanged. Right-s ided Mediport catheter is present. Endotracheal tube has been removed. IMPRESSION: Interval removal of endotracheal tube, otherwise stable chest. POS: [facility]
[2019-09-02] MEDS: Aspirin 81 mg Enteric Coated Tablet PO SCH ×2 (08:57→20:34)
[2019-09-02] MEDS: Sodium Chloride 0.9% 1,000 ML IV SCH (11:25)
--- NOTE | 2019-09-02 12:11 | PRG ---
DATE OF SERVICE: 09/02/2019 The patient was seen with Dr. Finnegan. SUBJECTIVE: This is an 79-year-old female with metastatic lung cancer, previously on Home Hospice, who presented after a mechanical fall and sustaining a left hip fracture. The patient is currently status post left hip hemiarthroplasty by Dr. Ion Ward, postop day two. The patient experienced acute respiratory failure perioperatively, requiring mechanical ventilation and pressors. The patient was fluid resuscitated and received 1 unit of RBCs. The patient was subsequently extubated yesterday without complications. The patient was in an atrial fibrillation with RVR, Dr. Leone, was consulted and initiated digoxin for rate control and the patient subsequently converted with current rates in the 80s. The patient had Levophed continually weaned and titrated for pressures with current blood pressure of 149/97. Due to the patient's intubation, she was not able to be seen by PT/OT yesterday. Today, patient is awake and alert and cooperating well. Expect transfer to medical floor today with subsequent PT/OT evaluation. The patient and family expressed wishes to return to home with [facility] re-initiated upon discharge. Palliative Care is consulting. OBJECTIVE: VITAL SIGNS: Pulse of 80, respirations 20, oxygen saturation 97% on 3 L, blood pressure 149/97, MAP of 114. GENERAL: An 79-year-old female, chronically ill, sitting up in bed on oxygen, and in no acute distress. HEENT: Normocephalic, atraumatic. RESPIRATORY: Rate, mild tachypnea and expiratory wheezes noted. Good air movement. CARDIOVASCULAR: Irregularly irregular with regular rate. No murmurs. No edema. ABDOMEN: Soft, nontender. PELVIS: Maza in place, stable. MUSCULOSKELETAL: ORIF of left hip. Minimal left lower extremity edema. Strong pulses. Warm extremities. PSYCH: Normal mood and affect. NEUROLOGICAL: Alert and oriented. LABORATORY DATA: Leukocytosis resolved with WBC of 9.6, HGB/HCT 9.6/28.5, platelet count 90. Sodium 144, potassium 3.4, chloride 109, carbon dioxide 24, BUN 15, creatinine 0.84, glucose 137, calcium 8.2. ASSESSMENT: 1. Left hip fracture status post open reduction and internal fixation. 2. Acute respiratory failure, requiring ventilation, status post extubation on 09/01/2019. 3. Atrial fibrillation with rapid ventricular response, resolved following digoxin treatment. 4. Postprocedure hypertension, titrating off Levophed, currently off with stable blood pressures. 5. Volume depletion, improving. 6. Chronic obstructive pulmonary disease with mild exacerbation on home 3 L nasal cannula. 7. History of metastatic lung disease, coronary artery disease, chronic obstructive pulmonary disease. 8. Acute blood loss anemia, fluctuating levels, status post 1 unit PRBC transfusion. PLAN: 1. Levophed weaned with current MAP of 114. Urine cultures negative. Discontinue Ancef. Digoxin management per Critical Care, atrial fibrillation with RVR currently resolved with rate control. 2. Regular diet and Ensure supplementation initiated yesterday, currently tolerating. 3. With the patient and extubated and off pressors, we will transfer from ICU to medical floor today. 4. Palliative Care consulting, the patient expressing wishes to return home with [facility]. 5. PT/OT to evaluate today. 6. DNR. 7. Continue prophylaxis with Pepcid and SCDs. 8. The patient and family at bedside were updated. All questions were answered. Coordinated care with pediatric dental hygienist and RN. PT and OT to evaluate today. Job ID: [id number]
--- NOTE | 2019-09-02 19:57 | PRG ---
DATE OF SERVICE: 09/02/2019 SUBJECTIVE: Diana Adams is more cooperative today and appears to be less delusional. OBJECTIVE: VITAL SIGNS: Heart rate is in the 70s, respiratory rates in the teens, oximetry is 96% on 2 L, blood pressure 156/89. LUNGS: Clear. HEART: Regular rhythm. ABDOMEN: Soft. having no respiratory issues today. Her family is very interested in getting her home with hospice, but I have explained to them that it is imperative that she be able to at least transfer from the bed to a bedside commode with minimal assistance. The orthopedic surgeons have recommended weightbearing. We will continue to follow while she is in the critical care unit. Critical care time is 35 minutes. Job ID: [id number] MTDD
--- NOTE | 2019-09-02 23:02 | PRG ---
DATE OF SERVICE: 09/02/2019 SUBJECTIVE: The patient remains on the surgical floor. The patient is postop day #2, status post left hip hemiarthroplasty. The patient is currently resting comfortably. Patient arouses to voice and voices no complaints. The patient reports that she is attempting to fall asleep at this time. OBJECTIVE: VITAL SIGN: Stable, afebrile. GENERAL: Elderly, no acute distress. RESPIRATORY: Respirations even nonlabored, good inspiratory and expiratory effort. No distress. ASSESSMENT: 1. Left hip fracture status post open reduction and internal fixation, status post mechanical fall. 2. Acute respiratory failure, resolved. 3. Atrial fibrillation with rapid ventricular response, improved. 4. Chronic obstructive pulmonary disease, on home oxygen. 5. History of metastatic lung disease, coronary artery disease. 6. Acute blood loss anemia, stable. PLAN: 1. Continue regular diet and Ensure supplementation. 2. Continue physical and occupational therapy. 3. Continue mechanical and chemical DVT prophylaxis. 4. The patient is pending placement to a fdc facility versus home with hospice. Job ID: [id number]
[2019-09-03] MEDS: methylPREDNISolone Sod Succ 40 MG VIAL IVP SCH ×4 (01:45→20:18)
[2019-09-03 05:52] LABS: Band 5 % (5-11); Eosinophils 1 % (0-10); Lymphocytes 6 % (21-51); MDiff Complete? YES; Mean Corpuscular Hemoglobin 32.3 pg (27.0-31.0); Mean Corpuscular Volume 94.9 fL (78.0-98.0); Mean Platelet Volume 8.6 fL (7.4-10.4); Monocytes 3 % (0-10); Neutrophil 85 % (42-75); Platelet Count 114 thou/uL (130-400); Platelet Morphology Comment Appears Decreased; RBC Distribution Width 13.9 % (11.5-14.5); Red Blood Cell (RBC) Count 3.39 mill/uL (4.20-5.40); White Blood Cell (WBC) Count 13.5 thou/uL (4.8-10.8)
[2019-09-03 05:57] LABS: Anion Gap 18 mmol/L (10-20); BUN (Urea Nitrogen) 15 mg/dL (9.8-20.1); Calc. Creatinine Clearance 52 mL/min (70-130); Calcium 8.4 mg/dL (7.8-10.44); Carbon Dioxide 23 mmol/L (23-31); Chloride 101 mmol/L (98-107); Estimated GFR-MDRD 79; Glucose 111 mg/dL (83-110); Magnesium 1.7 mg/dL (1.6-2.6); Potassium 3.1 mmol/L (3.5-5.1); Sodium 139 mmol/L (136-145)
[2019-09-03 06:00] LABS: Phosphorus 1.9 mg/dL (2.3-4.7)
[2019-09-03] MEDS: Arformoterol 15 MCG/2 ML NEB NEB SCH ×2 (06:53→19:14)
[2019-09-03] MEDS: Budesonide 0.5 MG/2 ML NEB INH SCH ×2 (06:53→19:16)
[2019-09-03] MEDS ORDERED: traMADol HCl 50 MG TAB PO PRN ×2 (07:36)
[2019-09-03] MEDS ORDERED: PHOS-NAK 1 PKT PACK PO SCH (08:00)
[2019-09-03] MEDS ORDERED: Potassium Chloride 20 MEQ TAB PO SCH (08:00)
[2019-09-03] MEDS: Acetaminophen 500 MG TAB PO SCH ×3 (08:44→20:20)
[2019-09-03] MEDS: Aspirin 81 mg Enteric Coated Tablet PO SCH ×2 (08:45→20:20)
[2019-09-03] MEDS: Digoxin 0.5 MG/2 ML AMP SLOW IVP SCH (08:49)
[2019-09-03] MEDS: Polyethylene Glycol 3350 17 GM Packet PO SCH (08:52)
[2019-09-03] MEDS: Senokot S 8.6-50 MG TAB PO SCH ×2 (08:52→20:20)
[2019-09-03] MEDS: Nicotine 21 MG PATCH TD SCH (08:52)
--- NOTE | 2019-09-03 09:02 | RAD ---
PORTABLE CHEST: HISTORY: Respiratory distress. COMPARISON: Prior day's study. FINDINGS: Heart size appears enlarged. There are atherosclerotic changes of the aorta. MediPort catheter is i n place. Overall appearance of the chest is stable. IMPRESSION: Stable exam. POS: [facility]
--- NOTE | 2019-09-03 10:34 | PRG ---
DATE OF SERVICE: 09/02/2019 This patient was seen with Dr. Finnegan. SUBJECTIVE: An 79-year-old female with metastatic lung cancer, postoperative day #2 following a left hip hemiarthroplasty by Dr. Ward. The patient was transferred to the medical floor yesterday after an uneventful post-extubation course in the CCU. The patient was seen by PT/OT yesterday, but refused therapies at that time due to fatigue and pain. The patient was previously on hospice for her metastatic lung cancer prior to arrival. The patient and family originally planned to return to home hospice, however, secondary to the patient's need for increased therapy, they have now decided to forego hospice and are considering home health versus SNF. The patient's has spoke with Case Management and Palliative Care who are working together to hopefully establish some combination of home health and hospice together. There is some concern that the patient will not be able to tolerate the amount of therapy that will be required to get her walking again. The patient's appetite has been poor following her operation. The patient was seen by dietary who has recommended supplementation. The patient is to work with PT and OT today to work on transfers. The patient's will also be there to assist and for further evaluation of his ability to care for the patient at home pending discharge. The patient had no complaints today or acute events overnight. OBJECTIVE: VITAL SIGNS: Temperature 97.9, pulse of 79, respiratory rate of 15, oxygen saturation of 92% on room air and BP of 133/79. GENERAL: 79-year-old female, chronically ill-appearing, sitting up in bed on room air with no acute distress. HEENT: Normocephalic, atraumatic. RESPIRATORY: Rate is normal. Good air movement. No respiratory distress. CARDIOVASCULAR: Irregularly irregular with normal rate. No murmurs. No edema. ABDOMEN: Soft, nontender. PELVIS: Maza in place and stable. MUSCULOSKELETAL: ORIF of left hip. Minimal lower extremity edema. Normal pulses. Warm extremities. PSYCH: Flat affect, minimally conversant. NEUROLOGIC: Alert, following commands. LABORATORY DATA: Return of leukocytosis with WBC of 13.5, HGB/HCT is 11/32.2, platelets are 114. Sodium is 139, potassium is 3.1, chloride is 101, carbon dioxide 23, BUN is 15, creatinine 0.71, glucose is 111, phosphorus is 1.9, and magnesium 1.7. Chest x-ray, overall appearance of chest is stable with comparison to prior study yesterday. ASSESSMENT: 1. Left hip fracture status post open reduction and internal fixation. 2. Acute respiratory failure requiring ventilation, status post extubation on 09/01/2019. 3. Atrial fibrillation with rapid ventricular response, now resolved following digoxin treatment, will convert IV to p.o. digoxin. 4. Postprocedure hypertension, off pressors with stable blood pressures currently. 5. Chronic obstructive pulmonary disease with mild exacerbation, now resolved currently with normal saturations on room air in patient chronically on 3 L nasal cannula at home. 6. History of metastatic lung disease, coronary artery disease, and chronic obstructive pulmonary disease. 7. Acute blood loss anemia status post 1 unit PRBC transfusion, stable hemoglobin levels currently. 8. Hypokalemia and hypophosphatemia. PLAN: 1. Regular diet and supplementation initiated, patient with poor p.o. intake. We will continue to encourage p.o. 2. Stable from cardiopulmonary standpoint following extubation and discontinuation of pressors, moved from CCU to medical floor yesterday. 3. Palliative care consulting, working with the patient, and Case Management to establish appropriate care at patient's discharge - [facility] facility versus home health with hospice. 4. PT, OT to evaluate and treat today. The patient refused yesterday. Encourage participation today. 5. Replace Phos and Potassium 6. DNR. 7. Patient and family at bedside were updated. All questions were answered. Coordinated care with the consulting teams. PT and OT to evaluate and treat today. Job ID: [id number] MTDD
[2019-09-03] MEDS: Digoxin 0.125 MG TAB PO SCH (10:48)
[2019-09-03] MEDS: hydrOXYzine Pamoate 25 mg Capsule PO SCH ×3 (12:30→23:41)
[2019-09-03 14:16] VITALS: BMI 18.4
[2019-09-03] MEDS: Ibuprofen 200 MG TAB PO SCH ×2 (14:25→21:24)
--- NOTE | 2019-09-03 21:40 | PRG ---
DATE OF SERVICE: 09/03/2019 SUBJECTIVE: The patient remains on the surgical floor. The patient is postop day #3, status post left hip hemiarthroplasty. The patient is currently awake, alert, in no distress. The patient voices no complaints at this time. The patient does state she was able to work some with Physical Therapy today, but was not able to stand. OBJECTIVE: VITAL SIGNS: Stable, afebrile. GENERAL: Elderly appearing female, sitting up in hospital bed, in no acute distress. RESPIRATORY: Respirations even and nonlabored, good inspiratory and expiratory effort. EXTREMITIES: Moves all extremities. Motor and sensation are intact. ASSESSMENT: 1. Left hip fracture status post open reduction and internal fixation, status post mechanical fall. 2. Acute respiratory failure, resolved. 3. Atrial fibrillation with rapid ventricular response, improved. 4. Chronic obstructive pulmonary disease, on home oxygen. 5. History of metastatic lung cancer and coronary artery disease. 6. Acute blood loss anemia, stable. PLAN: Continue regular diet and Ensure supplementation. Continue to have Physical and Occupational Therapy work with the patient. Continue mechanical DVT prophylaxis. The patient is pending fdc facility versus home with hospice. Job ID: [id number]
[2019-09-04] MEDS: Acetaminophen 500 MG TAB PO SCH ×3 (01:51→13:54)
[2019-09-04] MEDS: methylPREDNISolone Sod Succ 40 MG VIAL IVP SCH ×3 (01:52→13:54)
[2019-09-04 04:51] LABS: #Lymphocytes 0.4 thou/uL (1.20-3.40); #Monocytes 0.4 thou/uL (0.11-0.59); #Neutrophils 8.7 thou/uL (1.40-6.50); %Eosinophils 0.1 % (0.0-10.0); %Lymphocytes 3.8 % (21.0-51.0); %Monocytes 3.7 % (0.0-10.0); %Neutrophils 92.4 % (42.0-75.0); Hemoglobin 10.4 g/dL (12.0-16.0); Mean Corpuscular HGB CONC 33.2 g/dL (32.0-36.0); Mean Corpuscular Hemoglobin 31.9 pg (27.0-31.0); Mean Corpuscular Volume 96.1 fL (78.0-98.0); Mean Platelet Volume 8.4 fL (7.4-10.4); Platelet Count 110 thou/uL (130-400); RBC Distribution Width 13.7 % (11.5-14.5); Red Blood Cell (RBC) Count 3.25 mill/uL (4.20-5.40); White Blood Cell (WBC) Count 9.4 thou/uL (4.8-10.8)
[2019-09-04 05:20] LABS: Anion Gap 14 mmol/L (10-20); BUN (Urea Nitrogen) 26 mg/dL (9.8-20.1); Calc. Creatinine Clearance 42 mL/min (70-130); Carbon Dioxide 27 mmol/L (23-31); Chloride 104 mmol/L (98-107); Estimated GFR-MDRD 62; Glucose 128 mg/dL (83-110); Potassium 4.8 mmol/L (3.5-5.1); Sodium 140 mmol/L (136-145)
[2019-09-04] MEDS: hydrOXYzine Pamoate 25 mg Capsule PO SCH ×2 (05:36→12:11)
[2019-09-04] MEDS: Ibuprofen 200 MG TAB PO SCH ×2 (05:36→13:54)
[2019-09-04] MEDS: Arformoterol 15 MCG/2 ML NEB NEB SCH (06:47)
[2019-09-04] MEDS: Budesonide 0.5 MG/2 ML NEB INH SCH (06:48)
[2019-09-04] MEDS ORDERED: Magnesium 2 GM/50 ML 2 GM in Premix Bag 1 BAG IVPB SCH (07:00)
[2019-09-04] MEDS ORDERED: Sodium Phosphate 15 MMOL in Sodium Chloride 0.9% 250 ML 250 ML IVPB SCH (07:15)
[2019-09-04] MEDS: Aspirin 81 mg Enteric Coated Tablet PO SCH (08:35)
[2019-09-04] MEDS: Senokot S 8.6-50 MG TAB PO SCH (08:35)
[2019-09-04] MEDS: Digoxin 0.125 MG TAB PO SCH (08:35)
[2019-09-04] MEDS: Polyethylene Glycol 3350 17 GM Packet PO SCH (08:35)
[2019-09-04] MEDS: Nicotine 21 MG PATCH TD SCH (08:35)
--- NOTE | 2019-09-04 10:07 | RAD ---
ONE VIEW CHEST: COMPARISON: 09/03/2017. HISTORY: Pneumonia. Followup. FINDINGS: Stable right-sided MediPort catheter. Stable configuration of the cardiac silhouette. Atheroscleros is of the aorta is noted. Lungs continue to be hyperinflated. Chronic changes in the lung parenchym a with more focal opacification in the right lung base, unchanged. No pneumothorax or acute osseous abnormality. IMPRESSION: No significant interval change. POS: [facility]
[2019-09-04 11:19] VITALS: BP 142/82; TEMP 98
--- NOTE | 2019-09-04 12:44 | DIS ---
DATE OF ADMISSION: 08/31/2019 DATE OF DISCHARGE: 09/04/2019 ADMISSION DIAGNOSES: 1. Mechanical fall. 2. Left-sided hip fracture. DISCHARGE DIAGNOSES: 1. Mechanical fall. 2. Left-sided hip fracture. 3. Postoperative hypotension. 4. Respiratory failure. CONSULTING PHYSICIANS: Dr. Lenoe of Pulmonary/Critical Care and Dr. Ward of Orthopedic Surgery, as well as Palliative Care. PROCEDURES: The patient went to the OR on August 31, 2019 and had a left hip hemiarthroplasty. HOSPITAL COURSE: The patient is an 79-year-old female, who presented to the Emergency Department after a mechanical fall. She is on hospice for her COPD, lung cancer with mets to the brain. She also has a history of atrial fibrillation. Upon evaluation, it was determined that the patient had a left hip fracture. She was admitted to the hospital and taken to the OR on the same day by Dr. Ward, where she received a left hip hemiarthroplasty. Postoperatively, the patient developed respiratory failure and hypotension. She was reintubated and sent to the CCU, for which Dr. Leone was consulted. She was extubated 2 days later and spent another day in the CCU, where she was transferred back up to the surgical floor. She did work with Physical and Occupational Therapy, but was not able to get up out of bed. Ultimately, she did decide to go back home with home hospice. They were contacted and accepted the patient. At the time of discharge, the patient's pain was well controlled. She was tolerating a regular diet. She had not been up out of bed, but she was voiding without difficulties. The patient requested to go home with home physical therapy. DISCHARGE DISPOSITION: Home with hospice. DISCHARGE CONDITION: Satisfactory. PHYSICAL EXAMINATION: GENERAL: Well-appearing, elderly female, lying in bed with no signs of acute distress. Two liters nasal cannula oxygen on at all times. PULMONARY: Equal chest rise and fall. Clear breath sounds throughout. No signs of acute respiratory distress. CARDIAC: Regular rate and rhythm. No murmurs, gallops, or rubs. GASTROINTESTINAL: Soft, nontender, and nondistended. EXTREMITIES: 2+ pulses in all extremities. Gross motor and sensation are intact. NEURO: GCS is 15. DISCHARGE INSTRUCTIONS: The patient is being discharged home with home hospice. She has followups with Dr. Ward in 14 days. Activity as tolerated. She is weightbearing as tolerated in all extremities. Posterior hip precautions on the left. She has a regular diet with Ensure b.i.d. She has a home health for physical therapy. She has incentive spirometry, oxygen, walker, specialty hospital bed, and a wheelchair. Hospice is to provide those things. DISCHARGE MEDICATIONS: Include; 1. Tylenol. 2. Ventolin. 3. Brovana. 4. Aspirin. 5. Pulmicort. 6. Digoxin. 7. Vistaril. 8. Ibuprofen. 9. Lorazepam. 10. Solu-Medrol. 11. Morphine. 12. Protonix. 13. MiraLAX. 14. Senokot. 15. Tramadol. 16. Trazodone. FOLLOWUP APPOINTMENTS: The patient is to follow up with Dr. Ward in [facility] in 14 days. This is merely a summary of the patient's hospitalization. For full details, please see her medical record in its entirety. Job ID: [id number]
--- NOTE | 2019-09-04 14:12 | PQF ---
SHAUN VILLEGAS LAYLA, [place] [id number] CLINICAL DOCUMENTATION IMPROVEMENT CLARIFICATION FORM: ICD-10 Updated PLEASE DO AN ADDENDUM TO THE PROGRESS NOTE WITH ANY DOCUMENTATION UPDATES OR ADDITIONS AND CARRY THROUGH TO DC SUMMARY. THANK YOU. DATE: 09/04/19 ATTN: YUDY Bates Please exercise your independent, professional judgment in responding to the clarification form. Clinical indicators are provided on the bottom of this form for your review Please check appropriate box(s): [ ] Acute respiratory failure due to an existing co-morbid condition: lung cancer [ ] Acute respiratory failure due to existing co-morbid condition: COPD exacerbation [ ] Acute respiratory failure due to Atrial fibrillation [ ] Acute respiratory failure related to the surgical procedure [ X] Respiratory insufficiency due to an existing co-morbid condition: _Lung cancer and COPD_ [ ] Respiratory insufficiency due to the surgical procedure [ ] Other diagnosis [ ] Unable to determine For continuity of documentation, please document condition throughout progress notes and discharge summary. Thank You. CLINICAL INDICATORS - SIGNS / SYMPTOMS / LABS/ RESULTS AND LOCATION IN MR 08/31 OctavioDorothy: "[id number] Received from OR / ICU bed intubated and bagged by anesth. Gus frank and Quarter Trimmer Dary and RN min attendance. No vasopressor infusing. R femoral art line intact reading SBP >130's. On Afib >120's. Non responsive. Skin color dusky. ETT 7.5 at 20 cm checked by RT and connected to vent FIO2 100 % TV 450 PEEP 5 PSV10 rate at 14. Unable to get O2 sat reading . " 09/01 Ahmadi: "acute resp failure" 09/03 Lamont: "acute respiratory failure. COPD with mild exacerbation, now resolved. RISKS FACTORS / RESULTS AND LOCATION IN MR Recent surgery--08/31 left hip hemiarthroplasty per Op note 09/03 Lamont: "COPD with mild exacerbation, now resolved. previously on hospice for metastatic lung cancer prior to arrival" 08/31 Octavio: "On Afib >120's" TREATMENT / RESULTS AND LOCATION IN MR Oxygen / Monitoring oxygenation status ICU post op 09/01 orders 08/31 intubated on mech vent Duo-nebs: albuterol/ipratropium 3ml Q4H 08/31-09/04 per orders Budesonide 0.5mg neb: 08/31/19 per orders Digoxin 0.25 mg IVF 08/31 x1; 0.125 09/01 daily per orders 08/31 -09/04 solu medrol 20mg IV 08/31-09/04 per orders Pulmonary Consult 08/31 orders (This form is maintained as a part of the permanent medical record) 2014 [employer] All Rights Reserved Gretel Cooper RN, BSN, [email or web address] [email or web address]
== END 2019-09-04 15:20 | disposition hospice, home (50) | DRG 470 ==
LOC: ERS 20:38 → SURG B 08-31 01:11 → CCU 08-31 17:26 → SURG B 09-02 14:07
PROVIDERS: ADMIT Specialist; ATTEND Specialist
PROC: 0SRS03A Replacement of Left Hip Joint, Femoral Surface with Ceramic Synthetic Substitute, Uncemented, Open Approach (ICD-10-PCS; principal; 2019-08-31)
PROC: 30233N1 Transfusion of Nonautologous Red Blood Cells into Peripheral Vein, Percutaneous Approach (ICD-10-PCS; 2019-08-31)
PROC: 3E033XZ Introduction of Vasopressor into Peripheral Vein, Percutaneous Approach (ICD-10-PCS; 2019-08-31)
PROC: 0BH17EZ Insertion of Endotracheal Airway into Trachea, Via Natural or Artificial Opening (ICD-10-PCS; 2019-08-31)
PROC: 5A1935Z Respiratory Ventilation, Less than 24 Consecutive Hours (ICD-10-PCS; 2019-08-31)
DX: S72.012A Unspecified intracapsular fracture of left femur, initial encounter for closed fracture (principal); C79.31 Secondary malignant neoplasm of brain; C34.11 Malignant neoplasm of upper lobe, right bronchus or lung; D62 Acute posthemorrhagic anemia; I10 Essential (primary) hypertension; Z66 Do not resuscitate; Z51.5 Encounter for palliative care; J43.9 Emphysema, unspecified; W01.0XXA Fall on same level from slipping, tripping and stumbling without subsequent striking against object, initial encounter; Y92.129 Unspecified place in nursing home as the place of occurrence of the external cause; I48.91 Unspecified atrial fibrillation; I25.10 Atherosclerotic heart disease of native coronary artery without angina pectoris; F17.210 Nicotine dependence, cigarettes, uncomplicated; I95.81 Postprocedural hypotension; E86.9 Volume depletion, unspecified; E87.6 Hypokalemia; E83.39 Other disorders of phosphorus metabolism; R06.89 Other abnormalities of breathing; Z79.899 Other long term (current) drug therapy; Z79.82 Long term (current) use of aspirin; Z95.5 Presence of coronary angioplasty implant and graft
CPT/HCPCS: 36415; 36416; 36430; 51702; 70450; 71045; 72125; 72170; 72192; 80048; 80053; 80162; 81001; 82330; 82803; 82805; 83735; 84100; 84484; 85025; 85610; 85730; 86850; 86900; 86901; 87086; 93005; 94002; 94003; 94640; 96361; 96374; C1713; G0390; J0131; J0171; J0670; J0690; J1160; J1642; J2250; J2270; J2920; J3010; J3475; J3490; J7050; J7070; J7620; J7626; P9016; P9047; Q0177; S0028